=== PATIENT | male | born 2000 | race Caucasian/White ===

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

== ENCOUNTER 2020-06-24 20:52 | Emergency (ER) | payer OTHER ==
[~2020-06-24] VITALS: Ht 180.3 cm; Wt 81.8 kg
[2020-06-24 20:52] VITALS: BP 115/63
[2020-06-24] MEDS ORDERED: IBUPROFEN 600MG TAB PO ONE (21:30)
== END 2020-06-24 21:56 | disposition home or self-care (01) ==
LOC: M ED 20:52
DX: R50.9 Fever, unspecified (principal); M79.10 Myalgia, unspecified site
CPT/HCPCS: 99283; U0003

== ENCOUNTER → 2022-03-22 | Outpatient (CLI) | payer OTHER | LOC: M PLAIMG 06:42 | PROVIDERS: ATTEND Family Medicine | DX: M25.562 Pain in left knee (principal); M71.22 Synovial cyst of popliteal space [Baker], left knee ==